=== PATIENT | female | born 1995 | race Caucasian/White ===

== ENCOUNTER 2019-03-03 09:28 | Emergency (ER) | payer SELFPAY ==
--- NOTE | 2019-03-03 12:01 | ULT ---
TRANSABDOMINAL TRANSVAGINAL PELVIC ULTRASOUND DATE:: 03/03/2019 11:13 AM CLINICAL HISTORY: Lower abdominal pain with a positive test. COMPARISON: None. TECHNIQUE: Grayscale, color Doppler and spectral Doppler images were obtained of the pelvis see a tra nsabdominal transvaginal approach Uterus: Size: 9.7 x 5.2 x 7.0 cm Mass: None Cervix: Within normal limits Endometrium: There is a suspected intrauterine gestational sac present with a mean sac diameter of 0. 37 cm giving an estimated gestational age of 5 weeks and 1 day. The estimated due date by ultrasound based on mean sac diameter is November 02, 2019. The gestational age based on clinical dates is 6 weeks and 1 day with estimated due date of October 26, 2019. Endometrial Thickness: 12.4 mm Ovaries: Size: Right ovary was not seen; left measures 2.1 x 3.1 x 1.6 cm Mass: None. Flow: Normal Cul-de-sac: No free fluid IMPRESSION: Suspected small gestational sac within the endometrial canal most consistent with early of undetermined viability. Without confirmation of internal parts, pseudogestational sac related to an ectopic is not excluded. Recommend continued clinical and serologic follow-up. Recomm end sonographic evaluation as clinically indicated. Nonvisualization of the right adnexa due to artifact related to overlying bowel.
== END 2019-03-03 12:54 | disposition home or self-care (01) ==
LOC: ERS 09:28
DX: O99.89 Other specified diseases and conditions complicating pregnancy, childbirth and the puerperium (principal); R10.30 Lower abdominal pain, unspecified; O99.331 Smoking (tobacco) complicating pregnancy, first trimester; F17.210 Nicotine dependence, cigarettes, uncomplicated; Z3A.01 Less than 8 weeks gestation of pregnancy
CPT/HCPCS: 36415; 76856; 84702

== ENCOUNTER 2019-04-12 17:23 | Emergency (ER) | payer SELFPAY ==
[2019-04-12 18:18] LABS: #Basophils 0.1 thou/uL (0.0-0.2); #Eosinphils 0.1 thou/uL (0.0-0.7); #Lymphocytes 1.3 thou/uL (1.20-3.40); #Monocytes 0.5 thou/uL (0.11-0.59); #Neutrophils 9.4 thou/uL (1.40-6.50); %Basophils 0.7 % (0.0-1.0); %Eosinophils 0.9 % (0.0-10.0); %Lymphocytes 11.7 % (21.0-51.0); %Monocytes 4.7 % (0.0-10.0); %Neutrophils 82.1 % (42.0-75.0); Hemoglobin 12.3 g/dL (12.0-16.0); Mean Corpuscular HGB CONC 32.7 g/dL (32.0-36.0); Mean Corpuscular Volume 85.6 fL (78.0-98.0); Mean Platelet Volume 7.1 fL (7.4-10.4); Platelet Count 253 thou/uL (130-400); RBC Distribution Width 12.3 % (11.5-14.5); Red Blood Cell (RBC) Count 4.41 mill/uL (4.20-5.40); White Blood Cell (WBC) Count 11.4 thou/uL (4.8-10.8)
[2019-04-12 18:32] LABS: BHCG - Serum POSITIVE (NEGATIVE); Pregs Control Background? CLEAR/WHITE (CLR/WHITE); Pregs Control Bar Appear? YES (CONTROL BAR)
[2019-04-12 18:33] LABS: ALT (SGPT) 10 U/L (8-55); AST (SGOT) 12 U/L (5-34); Albumin 4.2 g/dL (3.5-5.0); Alkaline Phosphatase 47 U/L (40-110); Anion Gap 13 mmol/L (10-20); BUN (Urea Nitrogen) 6 mg/dL (7.0-18.7); Bilirubin, Total 0.8 mg/dL (0.2-1.2); Calc. Creatinine Clearance 0 mL/min (70-130); Calcium 9.1 mg/dL (7.8-10.44); Carbon Dioxide 23 mmol/L (22-29); Chloride 103 mmol/L (98-107); Estimated GFR-MDRD Greater than 90; Glucose 120 mg/dL (70-105); Lipase 8 U/L (8-78); Potassium 3.4 mmol/L (3.5-5.1); Protein, Total 7.2 g/dL (6.0-8.3); Sodium 136 mmol/L (136-145)
--- NOTE | 2019-04-12 19:15 | ULT ---
US Gallbladder RUQ: 04/12/2019 5:43 PM CLINICAL HISTORY: Right upper quadrant pain for 6 weeks. STUDY: Limited right upper quadrant ultrasound of abdomen. COMPARISON: None. FINDINGS: Liver: Size: Normal. Echogenicity: Normal. Contour: Smooth. Mass: None. Bile ducts: No intrahepatic or extrahepatic biliary dilatation. Common bile duct measures 2 mm. Gallbladder: Normal. Pancreas: Head, body, and tail appear normal. Right kidney: No pelvicalyceal dilatation. Right kidney measuring 11.9 cm in length. IMPRESSION: Unremarkable exam.
[2019-04-12] MEDS ORDERED: Ondansetron PF 4 MG/2 ML Vial ONE (19:20)
[2019-04-12 20:21] LABS: Bilirubin Negative (Negative); Blood, Urine Negative (Negative); Clarity Cloudy (Clear); Glucose, Urine (Dipstick) Negative (Negative); Leukocyte Negative (Negative); Nitrite Negative (Negative); Protein, Urine (Dipstick) Negative (Neg-Trace); Urobilinogen 0.2 mg/dL (Less than 2)
== END 2019-04-12 20:38 | disposition home or self-care (01) ==
LOC: SCSER 17:23
DX: O99.89 Other specified diseases and conditions complicating pregnancy, childbirth and the puerperium (principal); R10.11 Right upper quadrant pain; O99.332 Smoking (tobacco) complicating pregnancy, second trimester; F17.210 Nicotine dependence, cigarettes, uncomplicated; Z3A.16 16 weeks gestation of pregnancy
CPT/HCPCS: 76705; 80053; 81003; 83690; 84703; 85025; 96374; 96375; J2270; J2405

== ENCOUNTER 2019-10-30 03:52 | Outpatient (CLI) | payer OTHER ==
[2019-10-30 17:42] LABS: SARS-CoV-2 MS2 Positive; SARS-CoV-2 N Gene Negative; SARS-CoV-2 S Gene Negative; SARS-CoV-2 orf1ab Negative
== END 2019-10-30 03:53 | disposition home or self-care (01) ==
LOC: ERS 03:52
PROVIDERS: ATTEND Obstetrics & Gynecology
DX: Z01.812 Encounter for preprocedural laboratory examination (principal); Z11.59 Encounter for screening for other viral diseases
CPT/HCPCS: 87635; U0003

== ENCOUNTER 2019-11-01 05:30 | Inpatient (IN) | payer OTHER ==
[2019-11-01] MEDS ORDERED: hydrALAZINE 20 MG/ML VIAL SLOW IVP PRN ×2 (05:54→13:16)
[2019-11-01] MEDS ORDERED: Methylergonovine 0.2 MG/ML VIAL IM PRN ×2 (05:54→13:16)
[2019-11-01] MEDS ORDERED: Ondansetron PF 4 MG/2 ML Vial IVP PRN ×3 (05:54→13:16)
[2019-11-01] MEDS ORDERED: Promethazine HCl 25 MG/ML VIAL IM PRN ×3 (05:54→13:16)
[2019-11-01] MEDS ORDERED: Butorphanol Tartrate 1 MG/ML VIAL SLOW IVP PRN (05:54)
[2019-11-01] MEDS ORDERED: Carboprost 250 MCG/ML AMP IM PRN (05:54)
[2019-11-01] MEDS ORDERED: NS / Oxytocin 40 units/1000ml 1,000 ML IV PRN (05:54)
[2019-11-01] MEDS ORDERED: Lidocaine 1% (PF) 30 ML VIAL SC PRN (05:54)
[2019-11-01] MEDS ORDERED: Ibuprofen 800 MG TAB PO PRN (05:54)
[2019-11-01] MEDS ORDERED: Acetaminophen 500 MG TAB PO PRN (05:54)
[2019-11-01] MEDS ORDERED: Diphenoxylate HCl/Atropine Tablet PO PRN ×2 (05:54)
[2019-11-01] MEDS ORDERED: Misoprostol 200 MCG TAB PR PRN (05:54)
[2019-11-01] MEDS ORDERED: HYDROcodone/Acetaminophen 5/325 mg Tablet PO PRN ×3 (05:54→13:16)
[2019-11-01] MEDS ORDERED: Docusate 100 MG CAP PO PRN (05:54)
--- NOTE | 2019-11-01 05:59 | PDOC.LDHP ---
Labor and Delivery H&P Chief complaint: scheduled induction HPI: 23 y/o at 39 and 6/7 weeks for term induction of labor. GBS Positive. Current gestational age (weeks): 39 Due date: 11/02/19 Grav: 4 Para: 2 Current complications: none Abnormal US findings: No Current medications: pre-sriram vitamins Previous surgical history: none, other (Tonsillectomy) Social history: tobacco use - Physical Exam Vital signs reviewed and normal: yes General: NAD, resting Heart: RRR Lungs: CTAB Abdomen: gravid Extremeties: no edema FHT: category 1 - Assessment L&D Assessment: elective induction at term - Plan Plan: admit to L&D, cervical ripening
[2019-11-01] MEDS ORDERED: NS w/ Oxytocin 10 units 500 ML IV SCH ×2 (06:00)
[2019-11-01] MEDS ORDERED: Lactated Ringer's 1,000 ML IV SCH (06:00)
[2019-11-01] MEDS ORDERED: Penicillin G Potassium 5 MILL.UNITS in Sodium Chloride 0.9% 100 ML IVPB SCH (06:00)
[2019-11-01 07:14] VITALS: BMI 21.4
[2019-11-01 08:14] LABS: Hemoglobin 11.2 g/dL (12.0-16.0); Mean Corpuscular HGB CONC 32.5 g/dL (32.0-36.0); Mean Corpuscular Hemoglobin 28.3 pg (27.0-31.0); Mean Platelet Volume 8.1 fL (7.4-10.4); Platelet Count 200 thou/uL (130-400); RBC Distribution Width 13.3 % (11.5-14.5); Red Blood Cell (RBC) Count 3.95 mill/uL (4.20-5.40); White Blood Cell (WBC) Count 8.5 thou/uL (4.8-10.8)
[2019-11-01] MEDS ORDERED: Fentanyl 4 mcg/Bup 0.1% Cadd 100 ML ONE (08:39)
[2019-11-01 08:54] LABS: HBSAg Index 0.15 S/CO (0-0.99); Hep B Surf Ag Non-Reactive S/CO (NonReactive); Syphilis Antibody Nonreactive (Nonreactive); Syphilis Antibody Index 0.05 S/CO (<1.00 Non-Reactive)
[2019-11-01] MEDS ORDERED: Naloxone HCl 0.4 mg/ml Vial IVP PRN ×2 (09:10)
[2019-11-01] MEDS ORDERED: diphenhydrAMINE 50 MG/ML VIAL IVP PRN (09:10)
[2019-11-01] MEDS ORDERED: EPHEDRINE 25 MG/5 ML SYRINGE SLOW IVP PRN (09:10)
[2019-11-01] MEDS ORDERED: Lactated Ringer's 500 ML IV PRN (09:10)
[2019-11-01] MEDS ORDERED: Acetaminophen 325 MG TAB PO PRN (09:10)
[2019-11-01] MEDS ORDERED: Communication Order-Pharmacy FS SCH (09:15)
[2019-11-01] MEDS ORDERED: Fentanyl 4 mcg/Bupivacaine 0.1% Cassette 100 ML EPIDURAL SCH (09:15)
[2019-11-01 10:51] LABS: Amphetamine Not Detected (NotDetected); Barbiturates Screen Detected (NotDetected); Benzodiazepine Screen Not Detected (NotDetected); Cocaine Metabolite Screen Not Detected (NotDetected); Medtox Control Line Valid? VALID (VALID); Medtox Reader # READER 4; Methadone Not Detected (NotDetected); Methamphetamine Not Detected (NotDetected); Opiate Screen Not Detected (NotDetected); Oxycodone Screen Not Detected (NotDetected); Phencyclidine (PCP) Not Detected (NotDetected); THC/Cannabinoid Screen Detected (NotDetected); Tricyclic Screen Not Detected (NotDetected)
[2019-11-01] MEDS ORDERED: Penicillin G 2.5 MILL.units 2.5 MILL.UNITS in Premix Bag 1 BAG IVPB SCH (11:30)
[2019-11-01] MEDS ORDERED: NS / Oxytocin 40 units/1000ml 1,000 ML ONE (11:46)
[2019-11-01] MEDS ORDERED: Lidocaine 1% (PF) 30 ML VIAL ONE (11:46)
[2019-11-01] MEDS ORDERED: Bisacodyl 10 MG SUPP PR PRN (13:16)
[2019-11-01] MEDS ORDERED: Adacel (T-DAP) 0.5 ML SYRINGE IM ONE (13:16)
[2019-11-01] MEDS ORDERED: diphenhydrAMINE 25 MG CAP PO PRN (13:16)
[2019-11-01] MEDS ORDERED: Misoprostol 200 MCG TAB VAG PRN (13:16)
[2019-11-01] MEDS ORDERED: Benzocaine-Menthol 82.5 ML CAN TOP PRN (13:16)
[2019-11-01] MEDS ORDERED: Lanolin Ointment 7 GM TUBE TOP PRN (13:16)
[2019-11-01] MEDS ORDERED: NS / Oxytocin 40 units/1000ml 1,000 ML IV SCH (13:16)
[2019-11-01] MEDS ORDERED: Varicella virus, LIVE 0.5 ML VIAL SC ONE (13:16)
[2019-11-01] MEDS ORDERED: Zolpidem Tartrate 5 MG TAB PO PRN (13:16)
[2019-11-01] MEDS ORDERED: Preparation H Ointment 28 GM TUBE PR PRN (13:16)
[2019-11-01] MEDS ORDERED: Measles/Mumps/Rubella 10 MCG/0.5 ML VIAL SC ONE (13:16)
[2019-11-01] MEDS ORDERED: Milk Of Magnesia 30 ML UDCUP PO PRN (13:16)
[2019-11-01] MEDS: Ibuprofen 800 MG TAB PO SCH ×2 (15:04→21:01)
[2019-11-01] MEDS: HYDROcodone/Acetaminophen 5/325 mg Tablet PO PRN ×2 (16:08→21:00)
[2019-11-01] MEDS: Ferrous Sulfate 325 MG TAB PO SCH (16:35)
[2019-11-01] MEDS: Docusate Calcium (SURFAK) 240 MG CAP PO SCH (21:01)
[2019-11-02 06:01] LABS: #Eosinphils 0.1 thou/uL (0.0-0.7); #Lymphocytes 2.8 thou/uL (1.20-3.40); #Monocytes 0.7 thou/uL (0.11-0.59); #Neutrophils 5.3 thou/uL (1.40-6.50); %Basophils 0.5 % (0.0-1.0); %Eosinophils 0.9 % (0.0-10.0); %Lymphocytes 31.4 % (21.0-51.0); %Monocytes 7.5 % (0.0-10.0); %Neutrophils 59.8 % (42.0-75.0); Hemoglobin 8.7 g/dL (12.0-16.0); Mean Corpuscular HGB CONC 31.2 g/dL (32.0-36.0); Mean Corpuscular Volume 89.5 fL (78.0-98.0); Mean Platelet Volume 8.1 fL (7.4-10.4); Platelet Count 153 thou/uL (130-400); RBC Distribution Width 13.2 % (11.5-14.5); Red Blood Cell (RBC) Count 3.12 mill/uL (4.20-5.40); White Blood Cell (WBC) Count 8.9 thou/uL (4.8-10.8)
[2019-11-02] MEDS: Ibuprofen 800 MG TAB PO SCH ×3 (06:06→21:42)
[2019-11-02] MEDS: Prenatal Vitamin 1 TAB PO SCH (08:16)
[2019-11-02] MEDS: Ferrous Sulfate 325 MG TAB PO SCH ×2 (08:16→17:50)
[2019-11-02] MEDS: Docusate Calcium (SURFAK) 240 MG CAP PO SCH ×2 (08:17→21:43)
[2019-11-02] MEDS: HYDROcodone/Acetaminophen 5/325 mg Tablet PO PRN ×3 (08:17→23:57)
[2019-11-03] MEDS: Ibuprofen 800 MG TAB PO SCH ×2 (05:54→13:31)
[2019-11-03] MEDS: Ferrous Sulfate 325 MG TAB PO SCH (08:43)
[2019-11-03] MEDS: Docusate Calcium (SURFAK) 240 MG CAP PO SCH (08:43)
[2019-11-03] MEDS: Prenatal Vitamin 1 TAB PO SCH (08:43)
[2019-11-03 12:25] VITALS: BP 124/79; TEMP 98.2
[2019-11-03] MEDS: HYDROcodone/Acetaminophen 5/325 mg Tablet PO PRN (12:28)
--- NOTE | 2019-11-03 14:22 | PDOC.PP ---
Post Progress Note Post Day #: 1 PO intake tolerated: yes Flatus: yes Ambulation: yes Vital Signs (12 hours) Temp Pulse Resp BP Pulse Ox 11/03/19 12:24 98.2 F 84 17 124/79 95 11/03/19 08:39 97.9 F 57 L 17 112/69 97 11/03/19 08:30 97 Weight Admit Weight 145 lb Weight 145 lb - Physical Examination General: NAD Cardiovascular: no m/r/g, RRR Respiratory: clear to auscultation bilaterally, non-labored breathing Abdominal: + bowel sounds, lochia, no distention Extremities: negative homans (B) Neurological: no gross focal deficits Psychiatric: A&Ox3, normal affect Result Diagrams: 11/02/19 05:51 Additional Labs: Post Labs Blood Type O POSITIVE 11/01/19 08:41 Hep Bs Antigen Non-Reactive S/CO (NonReactive) 11/01/19 08:03
--- NOTE | 2019-11-03 14:23 | PDOC.PP ---
Post Progress Note Post Day #: 2 PO intake tolerated: yes Flatus: yes Ambulation: yes Vital Signs (12 hours) Temp Pulse Resp BP Pulse Ox 11/03/19 12:24 98.2 F 84 17 124/79 95 11/03/19 08:39 97.9 F 57 L 17 112/69 97 11/03/19 08:30 97 Weight Admit Weight 145 lb Weight 145 lb - Physical Examination General: NAD Cardiovascular: no m/r/g, RRR Respiratory: clear to auscultation bilaterally, non-labored breathing Abdominal: + bowel sounds, lochia, no distention, appropriately TTP Extremities: negative homans (B) Neurological: no gross focal deficits Psychiatric: A&Ox3, normal affect Result Diagrams: 11/02/19 05:51 Additional Labs: Post Labs Blood Type O POSITIVE 11/01/19 08:41 Hep Bs Antigen Non-Reactive S/CO (NonReactive) 11/01/19 08:03
--- NOTE | 2019-11-03 18:53 | DN ---
DATE OF PROCEDURE: 11/01/2019 TIME: At 11:53 [place] Daylight Savings Time. PREOPERATIVE DIAGNOSIS: Intrauterine at 39 weeks and 6 days with a term elective induction of labor. POSTOPERATIVE DIAGNOSIS: Intrauterine at 39 weeks and 6 days with a term elective induction of labor. PROCEDURES: Spontaneous vaginal delivery over intact perineum. FINDINGS: Viable female weighing 3168 g or 7 pounds 0 ounce. Apgars of nine and nine. QUANTITATIVE BLOOD LOSS: 250 mL. COMPLICATIONS: None. PROCEDURE IN DETAIL: The patient presented to [facility] where she was admitted to the labor and delivery service. The patient underwent a normal and uneventful labor with normal cervical dilatation until she was found to be completely dilated. She was then allowed to push and was able to bring the baby down and delivered the baby in a vertex presentation without difficulties. Once the head delivered in occiput anterior position, the shoulders followed spontaneously along with the rest of the baby's body. Once out the baby's mouth and nose were bulb suctioned. The cord was clamped and cut and baby was handed to waiting attendants. Cord blood was collected. Gentle fundal massage was performed and the placenta delivered intact without problems. Hemostasis was assured. Quantitative blood loss was calculated. Inspection of the cervix, vaginal vault, and perineum did not reveal any lacerations needing suturing. Once again, hemostasis was within normal limits and the patient was allowed to recover in the labor and delivery room. Baby went to nursery. Job ID: [id number]
== END 2019-11-03 15:15 | disposition home or self-care (01) | DRG 807 ==
LOC: L&D 06:36 → 3SW 13:44
PROVIDERS: ADMIT Obstetrics & Gynecology; ATTEND Obstetrics & Gynecology
PROC: 10E0XZZ Delivery of Products of Conception, External Approach (ICD-10-PCS; principal; 2019-11-01)
PROC: 10907ZC Drainage of Amniotic Fluid, Therapeutic from Products of Conception, Via Natural or Artificial Opening (ICD-10-PCS; 2019-11-01)
PROC: 3E033VJ Introduction of Other Hormone into Peripheral Vein, Percutaneous Approach (ICD-10-PCS; 2019-11-01)
PROC: 3E0P7VZ Introduction of Hormone into Female Reproductive, Via Natural or Artificial Opening (ICD-10-PCS; 2019-11-01)
DX: O99.824 Streptococcus B carrier state complicating childbirth (principal); Z37.0 Single live birth; O99.334 Smoking (tobacco) complicating childbirth; F17.210 Nicotine dependence, cigarettes, uncomplicated; Z3A.39 39 weeks gestation of pregnancy
CPT/HCPCS: 36415; 51702; 80306; 85025; 85027; 86780; 86850; 86900; 86901; 87340; J2001; J2405; J2540; J2590; J3490

== ENCOUNTER 2021-08-31 08:53 | Inpatient (IN) | payer OTHER ==
[2021-08-31] MEDS ORDERED: Iopamidol-370 76% 500 ML 1 ML ONE (09:14)
[2021-08-31] MEDS ORDERED: Ondansetron PF 4 MG/2 ML Vial ONE ×4 (10:14→19:48)
[2021-08-31] MEDS ORDERED: Morphine 4 MG/ML VIAL ONE ×3 (10:14→15:27)
[2021-08-31 10:43] LABS: #Lymphocytes 1.2 thou/uL (1.20-3.40); #Monocytes 1.2 thou/uL (0.11-0.59); #Neutrophils 14.2 thou/uL (1.40-6.50); %Basophils 0.3 % (0.0-1.0); %Eosinophils 0.2 % (0.0-10.0); %Lymphocytes 7.2 % (21.0-51.0); %Monocytes 7.4 % (0.0-10.0); %Neutrophils 84.9 % (42.0-75.0); Hemoglobin 12.9 g/dL (12.0-16.0); Mean Corpuscular HGB CONC 32.4 g/dL (32.0-36.0); Mean Corpuscular Hemoglobin 30.7 pg (27.0-31.0); Mean Corpuscular Volume 94.7 fL (78.0-98.0); Mean Platelet Volume 6.9 fL (7.4-10.4); Platelet Count 237 thou/uL (130-400); RBC Distribution Width 11.7 % (11.5-14.5); Red Blood Cell (RBC) Count 4.19 mill/uL (4.20-5.40); White Blood Cell (WBC) Count 16.7 thou/uL (4.8-10.8)
[2021-08-31] MEDS ORDERED: Ampicillin/Sulbactam 3 GM in Sodium Chloride 0.9% 100 ML IVPB SCH (10:45)
[2021-08-31 10:59] LABS: ALT (SGPT) 8 U/L (8-55); AST (SGOT) 10 U/L (5-34); Albumin 4.4 g/dL (3.5-5.0); Alkaline Phosphatase 52 U/L (40-110); Anion Gap 15 mmol/L (10-20); BUN (Urea Nitrogen) 5 mg/dL (7.0-18.7); Calc. Creatinine Clearance 0 mL/min (70-130); Calcium 9.4 mg/dL (7.8-10.44); Carbon Dioxide 24 mmol/L (22-29); Chloride 98 mmol/L (98-107); Globulin 3.1 g/dL (2.4-3.5); Glucose 114 mg/dL (70-105); Potassium 3.2 mmol/L (3.5-5.1); Protein, Total 7.5 g/dL (6.0-8.3); Sodium 134 mmol/L (136-145)
[2021-08-31] MEDS ORDERED: Dexamethasone 10 MG/ML VIAL ONE (17:50)
[2021-08-31] MEDS: Dexamethasone 10 MG/ML VIAL SLOW IVP SCH (18:01)
[2021-08-31] MEDS: Dextrose 5 % And 0.9 % NaCl 1,000 ML IV SCH ×2 (18:01→22:10)
[2021-08-31] MEDS ORDERED: Acetaminophen 325 MG TAB ONE (18:42)
[2021-08-31] MEDS ORDERED: Acetaminophen 650 MG Suppository ONE (18:45)
[2021-08-31] MEDS ORDERED: Bacitracin Zinc Ointment 30 gm TUBE ONE (19:17)
[2021-08-31] MEDS ORDERED: Lidocaine 1% w/Epinephrine 1:100K 30 ML VIAL ONE (19:17)
[2021-08-31] MEDS ORDERED: Neomycin-Polymyxin 1 ML AMP ONE (19:17)
[2021-08-31] MEDS ORDERED: Ophthalmic Irrigation Solution 0 ML ONE (19:17)
[2021-08-31] MEDS ORDERED: Chlorhexidine Gluconate 15 ML UDCUP SSP ONE (19:17)
[2021-08-31 19:26] LABS: SARS-CoV-2 NAA Rapid Test Not Detected (NotDetected)
[2021-08-31] MEDS ORDERED: Fentanyl 100 MCG/2 ML VIAL ONE ×3 (19:27→21:33)
[2021-08-31] MEDS ORDERED: Lidocaine 1% PF 5 ML VIAL ONE (19:48)
[2021-08-31] MEDS ORDERED: Rocuronium Bromide 10 MG/ML (10ML VIAL) ONE (19:48)
[2021-08-31] MEDS ORDERED: Atropine Sulfate 1 mg/10 ml Syringe ONE (19:48)
[2021-08-31] MEDS ORDERED: PROPOFOL 200 MG/20 ML VIAL ONE (19:48)
[2021-08-31] MEDS ORDERED: Lidocaine 2% PF 5 ML VIAL ONE ×2 (20:06→23:08)
[2021-08-31] MEDS ORDERED: Ondansetron HCl/PF 4 MG/2 ML Vial IVP PRN (21:06)
[2021-08-31] MEDS ORDERED: Promethazine HCl 25 MG/ML VIAL IM PRN (21:06)
[2021-08-31] MEDS ORDERED: Promethazine HCl 25 MG/ML VIAL IVPB PRN (21:06)
[2021-08-31] MEDS: Ampicillin/Sulbactam 3 GM in Sodium Chloride 0.9% 100 ML IVPB SCH (22:00)
[2021-08-31] MEDS: Morphine 4 MG/ML VIAL SLOW IVP PRN (22:09)
[2021-08-31 22:37] VITALS: BMI 24.8
[2021-08-31] MEDS ORDERED: Ketorolac Tromethamine 30 MG/ML VIAL IVP SCH (23:30)
[2021-08-31] MEDS: Acetaminophen 325 MG TAB PO PRN (23:34)
[2021-08-31] MEDS: Potassium Chloride 10 MEQ/100 ML PREMIX BAG IVPB SCH ×2 (23:35→23:36)
[2021-09-01 00:47] LABS: Bacteria/HPF None Seen HPF (None Seen); Bilirubin Negative (Negative); Blood, Urine Negative (Negative); Clarity Clear (Clear); Glucose, Urine (Dipstick) 300 mg/dL (Negative); Ketone, Urine 60 mg/dL (Negative); Leukocyte 500 Leu/uL (Negative); Nitrite Negative (Negative); Protein, Urine (Dipstick) Negative (Neg-Trace); Specific Gravity, Urine 1.015 (1.002-1.036); Squamous Epithelial 0-3 HPF (0-3); Urobilinogen Normal mg/dL (Less than 2); pH, Urine 6.5 (5.0-9.0)
[2021-09-01 00:49] LABS: Urine Culture Reflex Yes Yes
[2021-09-01 00:51] LABS: Amphetamine Not Detected (NotDetected); Barbiturates Screen Not Detected (NotDetected); Benzodiazepine Screen Not Detected (NotDetected); Cocaine Metabolite Screen Not Detected (NotDetected); Methadone Not Detected (NotDetected); Methamphetamine Detected (NotDetected); Opiate Screen Detected (NotDetected); Oxycodone Screen Not Detected (NotDetected); Phencyclidine (PCP) Not Detected (NotDetected); THC/Cannabinoid Screen Detected (NotDetected); Tricyclic Screen Not Detected (NotDetected)
[2021-09-01] MEDS: Morphine 4 MG/ML VIAL SLOW IVP PRN ×5 (01:51→19:59)
[2021-09-01] MEDS: Ampicillin/Sulbactam 3 GM in Sodium Chloride 0.9% 100 ML IVPB SCH ×4 (03:21→20:02)
[2021-09-01] MEDS ORDERED: Dexamethasone 10 MG in Sodium Chloride 0.9% 50 ML IVPB SCH (09:00)
[2021-09-01] MEDS: Chlorhexidine Gluconate 15 ML UDCUP SSP SCH ×2 (09:33→19:54)
[2021-09-01 10:35] LABS: #Lymphocytes 0.8 thou/uL (1.20-3.40); #Monocytes 1.1 thou/uL (0.11-0.59); #Neutrophils 12.5 thou/uL (1.40-6.50); %Lymphocytes 5.7 % (21.0-51.0); %Monocytes 7.5 % (0.0-10.0); %Neutrophils 86.7 % (42.0-75.0); Hemoglobin 10.3 g/dL (12.0-16.0); Mean Corpuscular HGB CONC 32.9 g/dL (32.0-36.0); Mean Corpuscular Hemoglobin 30.8 pg (27.0-31.0); Mean Corpuscular Volume 93.9 fL (78.0-98.0); Mean Platelet Volume 6.7 fL (7.4-10.4); Platelet Count 171 thou/uL (130-400); RBC Distribution Width 11.8 % (11.5-14.5); Red Blood Cell (RBC) Count 3.35 mill/uL (4.20-5.40); White Blood Cell (WBC) Count 14.4 thou/uL (4.8-10.8)
[2021-09-01 10:56] LABS: Anion Gap 12 mmol/L (10-20); BUN (Urea Nitrogen) 9 mg/dL (7.0-18.7); Calc. Creatinine Clearance 190 mL/min (70-130); Calcium 8.1 mg/dL (7.8-10.44); Carbon Dioxide 23 mmol/L (22-29); Chloride 106 mmol/L (98-107); Glucose 121 mg/dL (70-105); Potassium 3.7 mmol/L (3.5-5.1); Sodium 137 mmol/L (136-145)
[2021-09-01] MEDS: Acetaminophen 325 MG TAB PO PRN (17:18)
[2021-09-01] MEDS: Dextrose 5 % And 0.9 % NaCl 1,000 ML IV SCH ×2 (18:08→23:12)
[2021-09-01] MEDS: Dexamethasone 10 MG/ML VIAL SLOW IVP SCH (18:10)
[2021-09-02] MEDS: Ampicillin/Sulbactam 3 GM in Sodium Chloride 0.9% 100 ML IVPB SCH ×3 (03:19→14:29)
[2021-09-02 05:59] LABS: #Lymphocytes 0.6 thou/uL (1.20-3.40); #Monocytes 0.4 thou/uL (0.11-0.59); #Neutrophils 7.4 thou/uL (1.40-6.50); %Lymphocytes 7.6 % (21.0-51.0); %Monocytes 4.2 % (0.0-10.0); %Neutrophils 88.1 % (42.0-75.0); Hemoglobin 10.5 g/dL (12.0-16.0); Mean Corpuscular HGB CONC 33.2 g/dL (32.0-36.0); Mean Corpuscular Hemoglobin 31.8 pg (27.0-31.0); Mean Corpuscular Volume 95.8 fL (78.0-98.0); Mean Platelet Volume 7.2 fL (7.4-10.4); Platelet Count 175 thou/uL (130-400); RBC Distribution Width 11.8 % (11.5-14.5); Red Blood Cell (RBC) Count 3.29 mill/uL (4.20-5.40); White Blood Cell (WBC) Count 8.4 thou/uL (4.8-10.8)
[2021-09-02 06:17] LABS: Anion Gap 10 mmol/L (10-20); BUN (Urea Nitrogen) 6 mg/dL (7.0-18.7); Calc. Creatinine Clearance 193 mL/min (70-130); Calcium 8.8 mg/dL (7.8-10.44); Carbon Dioxide 25 mmol/L (22-29); Chloride 105 mmol/L (98-107); Glucose 132 mg/dL (70-105); Potassium 4.2 mmol/L (3.5-5.1); Sodium 136 mmol/L (136-145)
[2021-09-02] MEDS: Chlorhexidine Gluconate 15 ML UDCUP SSP SCH (07:55)
[2021-09-02] MEDS: Acetaminophen 325 MG TAB PO PRN (08:02)
[2021-09-02] MEDS: Dextrose 5 % And 0.9 % NaCl 1,000 ML IV SCH (10:07)
[2021-09-02 16:02] VITALS: BP 115/69; TEMP 97.9
== END 2021-09-02 15:45 | disposition home or self-care (01) | DRG 831 ==
LOC: ERS 08:53 → ERHOLD 16:21 → PACU-TCU 19:26 → SJJU 21:31
PROVIDERS: ADMIT Internal Medicine; ATTEND Hospitalist
PROC: 3E03329 Introduction of Other Anti-infective into Peripheral Vein, Percutaneous Approach (ICD-10-PCS; principal; 2021-08-31)
PROC: 0J910ZZ Drainage of Face Subcutaneous Tissue and Fascia, Open Approach (ICD-10-PCS; 2021-08-31)
PROC: 0CDXXZ1 Extraction of Lower Tooth, Multiple, External Approach (ICD-10-PCS; 2021-08-31)
DX: O98.811 Other maternal infectious and parasitic diseases complicating pregnancy, first trimester (principal); A41.9 Sepsis, unspecified organism; E87.1 Hypo-osmolality and hyponatremia; K12.2 Cellulitis and abscess of mouth; Z3A.01 Less than 8 weeks gestation of pregnancy; Z20.822 Contact with and (suspected) exposure to COVID-19; K04.7 Periapical abscess without sinus; O99.331 Smoking (tobacco) complicating pregnancy, first trimester; F17.210 Nicotine dependence, cigarettes, uncomplicated; O99.281 Endocrine, nutritional and metabolic diseases complicating pregnancy, first trimester; E87.6 Hypokalemia; M27.2 Inflammatory conditions of jaws; Z90.89 Acquired absence of other organs; Z79.899 Other long term (current) drug therapy; Z71.6 Tobacco abuse counseling
CPT/HCPCS: 36415; 70491; 80048; 80053; 80306; 81001; 83605; 85025; 87040; 87070; 87076; 87077; 87086; 87205; 96365; 96375; 96376; J0295; J0461; J1100; J1885; J2001; J2270; J2405; J2704; J3010; J3480; J3490; J7042; Q9967; U0002

== ENCOUNTER 2021-12-11 10:59 | Outpatient (CLI) | payer OTHER | END 2021-12-11 11:00 | disposition home or self-care (01) | LOC: BICULT 10:59 | PROVIDERS: ATTEND Family Medicine | DX: O35.8XX0 Maternal care for other (suspected) fetal abnormality and damage, not applicable or unspecified (principal); O28.3 Abnormal ultrasonic finding on antenatal screening of mother; Z3A.21 21 weeks gestation of pregnancy | CPT/HCPCS: 76805 ==

== ENCOUNTER 2023-04-08 22:55 | Emergency (ER) | payer OTHER, SELFPAY ==
[2023-04-08] MEDS ORDERED: Ketorolac Tromethamine 30 MG/ML VIAL ONE (23:38)
== END 2023-04-08 23:53 | disposition home or self-care (01) ==
LOC: ERS 22:55
DX: K02.9 Dental caries, unspecified (principal); K04.7 Periapical abscess without sinus; F17.210 Nicotine dependence, cigarettes, uncomplicated
CPT/HCPCS: 96372; 99282; J1885

== ENCOUNTER 2023-04-15 05:08 | Emergency (ER) | payer SELFPAY ==
[2023-04-15] MEDS ORDERED: Dexamethasone 10 MG/ML VIAL ONE (05:31)
[2023-04-15] MEDS ORDERED: Ketorolac Tromethamine 30 MG/ML VIAL ONE (05:31)
[2023-04-15] MEDS ORDERED: Clindamycin/D5W 900 MG in Premix 1 BAG IVPB SCH (05:45)
== END 2023-04-15 06:57 | disposition home or self-care (01) ==
LOC: ERS 05:08
DX: K04.7 Periapical abscess without sinus (principal); F17.210 Nicotine dependence, cigarettes, uncomplicated
CPT/HCPCS: 96365; 96375; J1100; J1885; J3490

== ENCOUNTER 2024-03-07 11:22 | Observation (INO) | payer SELFPAY, OTHER ==
[2024-03-07] MEDS ORDERED: Morphine 2 MG/ML VIAL ONE ×2 (12:01→13:21)
[2024-03-07] MEDS ORDERED: Ondansetron PF 4 MG/2 ML Vial ONE (12:01)
[2024-03-07] MEDS ORDERED: Ondansetron PF 4 MG/2 ML Vial IVP PRN (13:26)
[2024-03-07] MEDS ORDERED: Glucagon 1 MG/ML KIT IM PRN (13:26)
[2024-03-07] MEDS ORDERED: traMADol HCl 50 MG TAB PO PRN (13:26)
[2024-03-07] MEDS ORDERED: hydrALAZINE 20 MG/ML VIAL SLOW IVP PRN (13:26)
[2024-03-07] MEDS ORDERED: TETANUS, DIPHTHERIA TOX,ADULT (TDVAX) 0.5 ML VIAL IM ONE (13:26)
[2024-03-07] MEDS ORDERED: HYDROcodone/Acetaminophen 5/325 mg Tablet PO PRN (13:26)
[2024-03-07] MEDS ORDERED: Ondansetron ODT 4 MG TAB PO PRN (13:26)
[2024-03-07] MEDS ORDERED: Dextrose 5% in Water 1,000 ML IV PRN (13:26)
[2024-03-07] MEDS ORDERED: Dextrose 50% Abboject 50 ML SYRINGE SLOW IVP PRN (13:26)
[2024-03-07] MEDS ORDERED: Acetaminophen 325 MG TAB PO PRN (13:26)
[2024-03-07] MEDS ORDERED: Acetaminophen 325 MG TAB ONE (14:44)
[2024-03-07] MEDS ORDERED: Ketorolac Tromethamine 30 MG (1 mL) VIAL ONE (14:44)
== END 2024-03-07 15:36 | disposition home or self-care (01) ==
LOC: ERS 11:22 → ERHOLD 13:33
PROVIDERS: ADMIT Surgery; ATTEND Surgery
DX: S42.401A Unspecified fracture of lower end of right humerus, initial encounter for closed fracture (principal); V43.62XA Car passenger injured in collision with other type car in traffic accident, initial encounter; Z90.89 Acquired absence of other organs; F17.210 Nicotine dependence, cigarettes, uncomplicated; Z79.899 Other long term (current) drug therapy
CPT/HCPCS: 29105; 96372; 96374; 96375; 96376; G0390; J1885; J2272; J2405

== ENCOUNTER 2024-03-16 06:04 | Day surgery (SDC) | payer OTHER, SELFPAY ==
[2024-03-15 10:57] VITALS: BMI 22.1
[2024-03-16] MEDS ORDERED: CEFAZOLIN 2 GM VIAL ONE (07:09)
[2024-03-16] MEDS ORDERED: Midazolam HCl 2 mg/2 ml Vial ONE (07:23)
[2024-03-16] MEDS ORDERED: HYDROmorphone 0.5 MG/0.5 ML SYRINGE ONE ×2 (07:30→10:11)
[2024-03-16] MEDS ORDERED: PROPOFOL 0 ML ONE (07:37)
[2024-03-16] MEDS ORDERED: fentaNYL PF 100 MCG/2 ML SYRINGE ONE ×3 (07:37→09:57)
[2024-03-16] MEDS ORDERED: Ondansetron PF 4 MG/2 ML Vial ONE (07:37)
[2024-03-16] MEDS ORDERED: Dexamethasone 20 MG/5 ML VIAL ONE (07:37)
[2024-03-16] MEDS ORDERED: Lidocaine 1% PF 5 ML VIAL ONE (07:37)
[2024-03-16] MEDS ORDERED: PROPOFOL 20 ML ONE (07:39)
[2024-03-16] MEDS ORDERED: EPINEPHrine 1 MG/ML VIAL ONE (08:13)
[2024-03-16] MEDS ORDERED: Bupivacaine PF 0.5% 30 ML VIAL ONE (08:13)
[2024-03-16] MEDS ORDERED: Ketorolac Tromethamine 30 MG (1 mL) VIAL ONE (08:33)
[2024-03-16] MEDS ORDERED: Meperidine HCl/PF 25 MG (1 mL) VIAL ONE (09:57)
[2024-03-16] MEDS ORDERED: Ondansetron ODT 4 MG TAB ONE (11:53)
== END 2024-03-16 12:00 | disposition home or self-care (01) ==
LOC: SDC 06:04
PROVIDERS: ATTEND Orthopaedic Surgery
DX: S42.411A Displaced simple supracondylar fracture without intercondylar fracture of right humerus, initial encounter for closed fracture (principal); V89.2XXA Person injured in unspecified motor-vehicle accident, traffic, initial encounter
CPT/HCPCS: C1713; J0171; J0665; J1100; J1170; J1885; J2175; J2250; J2405; J2704; Q0162

== ENCOUNTER 2024-06-18 20:08 | Emergency (ER) | payer SELFPAY | END 2024-06-18 20:48 | disposition home or self-care (01) | LOC: ERS 20:08 | DX: K04.7 Periapical abscess without sinus (principal); F17.210 Nicotine dependence, cigarettes, uncomplicated | CPT/HCPCS: 99282 ==